=== PATIENT | male | born 1945 | race Caucasian/White ===

== ENCOUNTER → 2016-10-30 | Outpatient (CLI) | payer MEDICARE ==
[~2016-10-30] MED LIST: LISI10TA PO; MTF500T PO; OXYB10TA PO; blood pressure med; ditropan
--- NOTE | 2016-10-30 17:22 | Diagnostic Imaging Report ---
INDICATION: Cough. History of smoking. EXAMINATION: Two views of the chest were obtained. COMPARISON: 10/19/2013. FINDINGS: There is obstructive interstitial lung disease. The lungs are free of acute infiltrate. There are no masses. The heart is not enlarged. No hilar adenopathy. No pneumothorax or pleural effusion. IMPRESSION: Obstructive interstitial lung disease, otherwise negative chest. Dictated by: Dictated on workstation # [id number]
== END ==
LOC: RAD 16:29
PROVIDERS: ATTEND Nurse Practitioner Family
DX: J44.9 Chronic obstructive pulmonary disease, unspecified (principal); Z72.0 Tobacco use
CPT/HCPCS: 71020

== ENCOUNTER → 2018-09-15 | Outpatient (CLI) | payer MEDICARE ==
--- NOTE | 2018-09-15 17:55 | Diagnostic Imaging Report ---
INDICATION: Cough. TECHNIQUE: Two-view chest at 05:01 p.m. CORRELATION STUDY: 10/30/2016. FINDINGS: The heart size, mediastinal configuration and pulmonary vasculature are within normal limits. The lungs are clear with no consolidating infiltrate. There is no significant pleural effusion or pneumothorax. Visualized osseous structures are unremarkable. IMPRESSION: 1. Mildly hyperinflated lung milton. Minimal basilar atelectasis. No definitive infiltrate. Dictated by: Dictated on workstation # [id number]
== END ==
LOC: RAD 16:49
PROVIDERS: ATTEND Family Medicine
DX: R91.8 Other nonspecific abnormal finding of lung field (principal); R05 Cough
CPT/HCPCS: 71046

== ENCOUNTER 2018-10-10 09:37 | Outpatient (RCR) | payer MEDICARE ==
[2018-11-17] MEDS ORDERED: Patient May Use Own Meds, All PO (14:19)
== END 2019-01-08 | disposition home or self-care (01) ==
LOC: CARD 09:37
PROVIDERS: ATTEND Internal Medicine Interventional Cardiology
DX: R06.02 Shortness of breath (principal); E11.9 Type 2 diabetes mellitus without complications; E78.2 Mixed hyperlipidemia; I10 Essential (primary) hypertension; R00.1 Bradycardia, unspecified
CPT/HCPCS: 93225; 93226

== ENCOUNTER → 2018-10-13 | Outpatient (CLI) | payer MEDICARE | LOC: CARD 11:27 | PROVIDERS: ATTEND Internal Medicine Interventional Cardiology | DX: I34.0 Nonrheumatic mitral (valve) insufficiency (principal); I11.9 Hypertensive heart disease without heart failure; E78.2 Mixed hyperlipidemia; E11.9 Type 2 diabetes mellitus without complications | CPT/HCPCS: 93306 ==

== ENCOUNTER → 2018-11-03 | Outpatient (CLI) | payer MEDICARE ==
[~2018-11-03] VITALS: Ht 172.7 cm; Wt 79.8 kg
[~2018-11-03] MED LIST changes: +CATHETER FLUSH 10 ML SYR IV PRN; +REGADENOSON 0.4 MG/5 ML SYR (LEXISCAN) IV ONE
[2018-11-03 08:49] VITALS: BP 160/83
[2018-11-03 08:53] VITALS: BP 149/70
--- NOTE | 2018-11-04 12:53 | Cardiology Stress Test Report ---
Stress Test Report Type of NM Stress Test: Test Type: LEXISCAN 0.4MG/5ML Date of Procedure/Referring: Date of Procedure: Nov 03, 2018 PCP Boy Pitts MD Admitting Physician Altagracia Camargo MD Indications: hypertension, bradycardia Baseline Heart Rate: 66 Baseline Blood Pressure: Blood Pressure Systolic: 149 Blood Pressure Diastolic: 70 Baseline EKG: Baseline EKG: sinus rhythm Summary & Conclusion: Summary: The patient was brought to the stress lab after informed consent was taken. Stress test was performed according to the Lexiscan protocol. 0.4 mg of IV Lexiscan was given. Low-grade exercise was performed. Baseline EKG showed sinus rhythm at 66 BPM. Initial blood pressure was 160/83 mmHg. Maximum heart rate was 71 bpm and blood pressure 139/79 mmHg. Patient did not have any chest pain, arrhythmias. Possible ST depression in the inferior leads. 10.73 mCi of Myoview were given for rest imaging and 30.4 mCi of Myoview given for stress imaging. Transient ischemic dilatation score 1.16, EF 54 percent. Normal wall motion. Distal anterior/apical reversible defect. Moderate size. Conclusion: Pharmacological stress test was negative for ischemia. Normal LV function with no wall motion abnormalities. Likely ischemia in the distal anterior/apical territory. Coronary angiography is recommended. Boy PITTS MD Nov 04, 2018 12:53
== END ==
LOC: CARD 07:08
PROVIDERS: ATTEND Internal Medicine Interventional Cardiology
DX: I10 Essential (primary) hypertension (principal); E11.9 Type 2 diabetes mellitus without complications; E78.2 Mixed hyperlipidemia; R06.02 Shortness of breath; R00.1 Bradycardia, unspecified
CPT/HCPCS: 78452; 93017

== ENCOUNTER 2018-11-17 10:47 | Day surgery (SDC) | payer MEDICARE ==
[~2018-11-17] VITALS: Ht 172.7 cm; Wt 77.1 kg
[~2018-11-17 10:47] MED LIST changes: -CATHETER FLUSH 10 ML SYR IV PRN; -REGADENOSON 0.4 MG/5 ML SYR (LEXISCAN) IV ONE
[2018-11-17] MEDS ORDERED: NS IV 1000 ML 1,000 ML ONE ×2 (11:13→13:01)
[2018-11-17] MEDS ORDERED: LIDOCAINE 1% INJ 20 ML 20 ML VIAL ONE (11:13)
[2018-11-17 11:38] VITALS: BP 167/101
[2018-11-17] MEDS ORDERED: NS IV 1000 ML 1,000 ML IV SCH ×2 (11:39→14:00)
[2018-11-17] MEDS ORDERED: NS IV 1000 ML 1,000 ML IV ONE (11:45)
[2018-11-17 11:46] LABS: HEMOGLOBIN 14.3 G/DL (13.3-17.7); MEAN PLATELET VOLUME 10.4 FL (7.4-10.4); RED CELL DISTRIBUTION WIDTH 15.1 % (10.0-14.5); WHITE BLOOD COUNT 8.1 10^3/uL (4.3-11.0)
[2018-11-17 11:55] LABS: PROTHROMBIN TIME PATIENT 13.3 SEC (12.2-14.7)
[2018-11-17 12:00] LABS: ALBUMIN 4.4 GM/DL (3.2-4.5); BILIRUBIN,TOTAL 0.9 MG/DL (0.1-1.0); CALCIUM 9.5 MG/DL (8.5-10.1); CREATININE SERUM 1.63 MG/DL (0.60-1.30); POTASSIUM 4.1 MMOL/L (3.6-5.0); TOTAL PROTEIN 7.7 GM/DL (6.4-8.2)
[2018-11-17] MEDS ORDERED: HEParin (CATH LAB) 2,000 ML IV ONE (13:01)
[2018-11-17] MEDS ORDERED: fentaNYL INJECTION 100 MCG/2 ML AMP ONE (13:04)
[2018-11-17] MEDS ORDERED: MIDAZOLAM 5 MG/5 ML (VERSED) VIAL ONE (13:04)
--- NOTE | 2018-11-17 13:23 | Cardiac Procedure Note-CS/ASA ---
Pre-Procedure Note Pre-Op Procedure Note H&P Reviewed The H&P was reviewed, patient examined and no changes noted. Date H&P Reviewed: Nov 17, 2018 Time H&P Reviewed: 13:00 Conscious Sedation Pre-Proced Time 13:00 ASA Score 3 For ASA 3 and 4: Consider anesthesia and medical clearance. Also, for patients with a history of failed moderate sedation consider anesthesia. Airway Lungs Heart ASA score ASA 1: a normal healthy patient ASA 2: a patient with a mild systemic disease (mid diabetes, controlled hypertension, obesity ASA 3: a patient with a severe systemic disease that limits activity (angina, COPD, prior Myocardial infarction) ASA 4: a patient with an incapacitating disease that is a constant threat to life (CHF, renal failure) ASA 5: a moribund patient not expected to survive 24 hrs. (ruptured aneurysm) ASA 6: a declared brain- patient whose organs are being harvested. For emergent operations, add the letter E after the classification Mallampati Classification Grade 1 Sedation Plan Analgesia, Amnesia, Plan communicated to team members, Discussed options with patient/fam, Discussed risks with patient/fam The patient is an appropriate candidate to undergo the planned procedure, sedation, and anesthesia. The patient immediately re-assessed prior to indication. Boy SEVERINO MD Nov 17, 2018 13:23
--- NOTE | 2018-11-17 13:26 | History & Physicial-Cardiolgy ---
HPI-Cardiology Cardiology Consultation: Date of Consultation 11/17/18 Date of Admission Attending Physician Boy Pitts MD Admitting Physician Altagracia Camargo MD Consulting Physician Boy PITTS MD HPI: Time Seen by a Provider: 13:24 Chief Complaint: shortness of breath with significant risk factors for CAD including diabetes, hypertension, hyperlipidemia. Previous history of smoking. shortness of breath with significant coronary artery disease risk factors. Review of Systems-Cardiology Review of Systems Constitutional: As described under HPI; No As described under HPI, No no symptoms reported, No chills, No fever, No lightheadedness Eyes: No As described under HPI, No no symptoms reported, No blindness, No blurred vision, No contact lenses, No drainage, No decreased acuity, No foreign body sensation, No pain, No vision change Ears/Nose/Throat: No As described under HPI, No no symptoms reported, No chronic hearing loss, No ear discharge, No ear pain, No nasal drainage, No ulcerations Respiratory: No no symptoms reported; As described under HPI; No As described under HPI, No cough, No orthopnea; shortness of breath; No SOB with excertion Cardiovascular: No no symptoms reported; As described under HPI; No As described under HPI, No chest pain, No edema, No irregular heart rate, No lightheadedness, No palpitations Gastrointestinal: No no symptoms reported, No As described under HPI, No abdomen distended, No abdominal pain, No blood streaked bowels, No constipation, No diarrhea, No nausea, No vomiting, No stool coloration changes Genitourinary: No As described under HPI, No burning, No dysuria, No discharge, No frequency, No flank pain, No hematuria, No urgency Skin: No rash, No skin related problems, No ulcerations Psychiatric/Neurological: No anxiety, No depression, No seizure, No focal weakness, No syncope Hematologic: No bleeding abnormalities XUH-Ownpan-Prqktn Hx Patient Social History Alcohol Use: Denies Use Recreational Drug Use: No Smoking Status: Former Smoker 2nd Hand Smoke Exposure: No Recent Foreign Travel: No Recent Infectious Disease Expo: No Immunizations Up To Date Date of Pneumonia Vaccine: Nov 17, 2017 Past Medical History PMH As described under Assessment. Allergies and Home Medications Allergies Coded Allergies: Cephalexin Monohydrate (Unverified Allergy, Unknown, 01/18/12) Home Medications Lisinopril 10 Mg Tablet, 10 MG PO DAILY, (Reported) Metformin Hcl 500 Mg Tablet, 0.5 EACH PO BID WITH MEALS, (Reported) Oxybutynin Chloride 10 Mg Tablet, 2 EACH PO DAILY, (Reported) Patient Home Medication List Home Medication List Reviewed: Yes Physical Exam-Cardiology Physical Exam Vital Signs/I&O 11/17/18 11:38 Pulse 63 Resp 17 B/P (MAP) 167/101 (123) Pulse Ox 99 O2 Delivery Room Air Capillary Refill : Constitutional: appears stated age, AAO x 3; No apparent distress; well- developed, well-nourished HEENT: PERRL; No normal ENT inspection, No TMs normal, No pharynx normal, No scleral icterus (R), No scleral icterus (L), No pale conjunctivae (R), No pale conjunctivae (L), No photophobia, No TM abnormal (R), No TM abnormal (L), No pharyngeal erythema, No tonsillar exudate, No other, No discharge, No EOMI; hearing is well preserved; No hard of hearing; oral hygience is good; No ulceration, No xanthelasmas are seen Neck: No non-tender, No full range of motion, No supple, No normal inspection, No carotid bruit, No limited range of motion, No lymphadenopathy (R), No lymphadenopathy (L), No tender lateral, No tender midline, No thyromegaly, No other; carotid pulses are 2 + bilaterally; No with good upstrokes Respiratory: No accessory muscle use, No respiratory distress, No chest tender, No chest expansion is symmetric; chest is bilaterally symmetric; No lungs clear to percussion; lungs clear to auscultation; No crackles, No rhonchi, No rales, No stridor, No wheezing, No pleural rub, No other Cardiovascular: regular rate-rhythm; No irregularly irregular, No extra beats, No parasternal heave is noted, No JVD, No edema; bradycardia; No tachycardia, No point of maximal impulse, No cardiac thrills are palpable; S1 and S2; No gallop/S3, No gallop/S4, No diastolic murmur, No systolic murmur, No friction rub, No click, No other Gastrointestinal: No tender, No soft, No round, No distended, No pulsatile mass, No organomegaly, No guarding, No rebound, No tenderness, No hernia, No mass, No audible bowel sounds, No abnormal bowel sounds, No abdominal bruits, No spleenomegaly, No other Rectal: deferred Extremities: No normal range of motion, No non-tender, No normal inspection, No pedal edema, No calf tenderness, No normal capillary refill, No pelvis stable, No calf tenderness, No inflammation, No pedal edema, No slow capillary refill, No swelling, No other, No abrasion, No clubbing, No cyanosis, No ecchymosis, No laceration, No no lower extremity edema bilateral, No significant edema, No tenderness, No wound Neurologic/Psychiatric: no motor/sensory deficits, alert, normal mood/affect, oriented x 3, power is 5/5 both on sides Skin: No normal color, No warm/dry, No cyanosis, No cool, No diaphoresis, No damp, No ecchymosis, No jaundice, No mottled, No pallor, No rash, No tattoos/piercings, No ulcerations, No rash on exposed areas, No ulcerations on exposed areas, No other Data Review Labs Laboratory Tests 11/17/18 11:30: White Blood Count 8.1, Red Blood Count 5.04, Hemoglobin 14.3, Hematocrit 43, Mean Corpuscular Volume 85, Mean Corpuscular Hemoglobin 28, Mean Corpuscular Hemoglobin Concent 33, Red Cell Distribution Width 15.1H, Platelet Count 163, Mean Platelet Volume 10.4, Prothrombin Time 13.3, INR Comment 1.0, Activated Partial Thromboplast Time 35, Sodium Level 143, Potassium Level 4.1, Chloride Level 109H, Carbon Dioxide Level 24, Anion Gap 10, Blood Urea Nitrogen 37H, Creatinine 1.63H, Estimat Glomerular Filtration Rate 41, BUN/Creatinine Ratio 23, Glucose Level 113H, Calcium Level 9.5, Corrected Calcium 9.2, Total Bilirubin 0.9, Aspartate Amino Transf (AST/SGOT) 19, Alanine Aminotransferase (ALT/SGPT) 26, Alkaline Phosphatase 105, Total Protein 7.7, Albumin 4.4 A/P-Cardiology Assessment/Admission Diagnosis shortness of breath, asymptomatic bradycardia, diabetes, hypertension, hyperlipidemia, chronic kidney disease. Admission Status: Observation Plan coronary angiography is recommended since the patient had an abnormal nuclear stress test with apical ischemia. Chronic kidney disease. Boy PITTS MD Nov 17, 2018 13:26
[2018-11-17] MEDS ORDERED: PATIENT MAY USE OWN MEDS, ALL PO SCH (14:00)
--- NOTE | 2018-11-17 14:07 | Coronary Angiography Report ---
Coronary Angiography Report DATE OF PROCEDURE: 11/17/18 INDICATION: shortness of breath, diabetes, abnormal nuclear stress test. PREOPERATIVE DIAGNOSIS: shortness of breath, diabetes, abnormal nuclear stress test. POSTOPERATIVE DIAGNOSIS: severe triple-vessel disease with diabetes. HISTORY: this is a 73-year-old gentleman who presented to my office with complains of shortness of breath. He has history of diabetes, hypertension, untreated hyperlipidemia and chronic kidney disease. Nuclear stress test was done which showed moderate anterior apical ischemia. Therefore, the patient was scheduled for coronary angiography. PROCEDURES PERFORMED: 1.Coronary angiography. 2.Left heart catheterization. COMPLICATIONS: None. SPECIMENS: None. ESTIMATED BLOOD LOSS: 10 mL ANESTHESIA: Conscious sedation ANTICOAGULATION: none. CONTRAST: 22 mL. FLUOROSCOPY: 2.3 minutes. FLOUROSCOPY DOSE: 311 mgy. PROCEDURE DETAILS: The patient is a 73 male and was brought to the bundle tier and labeler after informed consent was taken. All the risks and complications were explained in detail; this included the risk of bleeding, vascular damage, stroke, [place] and even . The patient was draped and prepped in the usual sterile fashion. Jeffrey's test was abnormal therefore Access was gained in the right femoral artery with a 5 [place] sheath. Coronary angiography and left heart catheteri zation was performed with a JR4 and JL4 catheter. FINDINGS: 1.Left main: patent. 2.LAD: proximal occlusion with collaterals from the RCA. 3.Left circumflex artery: proximal occlusion with collaterals from the RCA. 4.RCA: severe proximal stenosis. Large artery. Supplies collaterals to the LAD and left circumflex artery. 5.Left heart catheterization: LV pressure 112/4 mmHg. LVEDP 7 mmHg. Aortic pressure 114/60 mmHg. Normal LV function with distal anterior, apical hypokinesis. No gradient across the aortic valve. CONCLUSIONS: this is a 73-year-old gentleman in history of diabetes, untreated hyperlipidemia, hypertension, chronic kidney disease who presented to the office with shortness of breath. Nuclear stress test showed moderate sized anterior apical ischemia. Coronary angiography reveals occluded proximal LAD and left circumflex artery and severe stenosis of the proximal RCA. The RCA is a large artery and supplies collaterals to the LAD and left circumflex artery. I believe that the best revascularization strategy is cardiac surgery. I will also recommend a in-hospital transfer. I will make the arrangements. Abdirashid Pitts MD, FACP, FACC, [facility] Interventional Cardiology Boy PITTS MD Nov 17, 2018 14:07
[2018-11-17] MEDS ORDERED: Patient May Use Own Meds, All PO (14:19)
--- NOTE | 2018-11-17 14:19 | Cardiology Discharge Summary ---
Diagnosis/Chief Complaint Date of Admission 11/17/2018 Date of Discharge 11/17/2018 Admission Diagnosis shortness of breath, diabetes, abnormal nuclear stress test Final/Discharge Diagnosis severe triple-vessel CAD Chief Complaint/HPI Chief Complaint/HPI shortness of breath with significant coronary artery disease risk factors including diabetes, untreated hyperlipidemia, hypertension, chronic kidney disease. Nuclear stress test showed moderate sized anterior apical ischemia. Discharge Summary Procedures coronary angiography showed occluded proximal LAD and proximal left circumflex artery filled via collaterals from the RCA. RCA is a large artery with severe proximal stenosis. LVEDP 7. LVEF normal. Distal anterior/apical hypokinesis. Discharge Physical Examination unremarkable Hospital Course Was the Problem List Reviewed?: Yes unremarkable Pending Labs Laboratory Tests 11/17/18 11:30: White Blood Count 8.1, Red Blood Count 5.04, Hemoglobin 14.3, Hematocrit 43, Mean Corpuscular Volume 85, Mean Corpuscular Hemoglobin 28, Mean Corpuscular Hemoglobin Concent 33, Red Cell Distribution Width 15.1, Platelet Count 163, Mean Platelet Volume 10.4, Prothrombin Time 13.3, INR Comment 1.0, Activated Partial Thromboplast Time 35, Sodium Level 143, Potassium Level 4.1, Chloride Level 109, Carbon Dioxide Level 24, Anion Gap 10, Blood Urea Nitrogen 37, Creatinine 1.63, Estimat Glomerular Filtration Rate 41, BUN/Creatinine Ratio 23, Glucose Level 113, Calcium Level 9.5, Corrected Calcium 9.2, Total Bilirubin 0.9, Aspartate Amino Transf (AST/SGOT) 19, Alanine Aminotransferase (ALT/SGPT) 26, Alkaline Phosphatase 105, Total Protein 7.7, Albumin 4.4 Discussion & Recommendations Discussion discussed at length with the patient and family. Cardiac surgery is recommended. I have spoken to Dr. Mahesh Hayes at [facility] and will make arrangement of transfer to [facility] this afternoon. Follow up appt.: Dr. Pitts after surgery. Dicharge Diet: Cardiac Diet Activity as Tolerated: Yes Home Medications Reviewed patient Home Medication Reconciliation performed by pharmacy medication reconciliations overhead door technician and/or nursing. Patients Allergies have been reviewed. Discharge Home Medications: Reviewed and agree with Discharge Medication list on patient's Discharge Instruction sheet Condition at discharge stable Instructions to patient/family discussed at length with the patient and family. Boy PITTS MD Nov 17, 2018 14:19
--- NOTE | 2018-11-17 14:20 | Discharge Inst-Post CATH ---
Discharge Inst-CATH/EP Problems Reviewed?: Yes Post Cardiac Cath/EP D/C Inst Follow Up/Plan discussed at length with the patient and family. <b>CARDIAC CATH/EP PROCEDURE DISCHARGE INSTRUCTIONS</b> ACTIVITY * Go Home directly and rest. * Limit activity of the leg (or wrist if it was used) for 7 days including aerobics, swimming, jogging, bicycling, etc. * Restrict stair-climbing for 7 days if possible, if not, climb up with your non-cath leg, then bring together on the same step. * Avoid lifting, pushing, pulling or excessive movement of the affected extremity for 7 days. * Customary sexual activity may be resumed after 2 days-use caution not to use a position that strains or causes pain to the affected extremity. * No driving for 24 hours. * NO SMOKING. * Avoid straining for bowel movements for 7 days. * Gentle walking on level ground is allowed. * Returning to work will depend on the type of procedure and the results. Your doctor will discuss this with you. CALL YOUR DOCTOR FOR ANY OF THE FOLLOWING: *If bleeding from the puncture site occurs- Apply gentle pressure to site with clean cloth and call your doctor or EMS. * If a knot or lump forms under the skin, increases in size, or causes pain. * If bruising appears to be worsening or moving further down your leg instead of disappearing. * Temperature above 101 F. CARE OF YOUR GROIN INCISION; * Bruising or purple discoloration of the skin near the puncture site is common. * You may shower only, no bathtub bathing for 5 days. Be careful to avoid slipping as your leg may feel stiff. * If a closure device was used on your femoral artery, please see the attached guide regarding care of the device and your leg. * Leave dressing on FOR 24 hours. CARE OF YOUR WRIST INCISION; * Bruising or purple discoloration of the skin near the puncture site is common. * You may shower. * DO NOT submerge wrist. * Leave dressing on FOR 24 hours. Boy SEVERINO MD Nov 17, 2018 14:20
[2018-11-17 14:30] VITALS: BP 130/75
[2018-11-17 15:15] VITALS: BP 131/61
[2018-11-17 15:30] VITALS: BP 122/73
[2018-11-17 15:45] VITALS: BP 130/64
[2018-11-17 16:00] VITALS: BP 129/69
--- NOTE | 2018-11-17 16:17 | NUR ---
REPORT GIVEN TO JOON AT [facility] AT 1510. PT LEFT FLOOR VIA EMS AT 1615.
== END 2018-11-17 16:18 | disposition short-term general hospital (02) ==
LOC: CATH 10:47 → ICU 14:28 → CATH 16:18
PROVIDERS: ATTEND Internal Medicine Interventional Cardiology
DX: I25.10 Atherosclerotic heart disease of native coronary artery without angina pectoris (principal); I99.8 Other disorder of circulatory system; I22.9 Subsequent ST elevation (STEMI) myocardial infarction of unspecified site; E11.22 Type 2 diabetes mellitus with diabetic chronic kidney disease; E11.59 Type 2 diabetes mellitus with other circulatory complications; E78.5 Hyperlipidemia, unspecified; N18.9 Chronic kidney disease, unspecified; Z87.891 Personal history of nicotine dependence; Z88.1 Allergy status to other antibiotic agents; Z79.4 Long term (current) use of insulin
CPT/HCPCS: 36415; 80053; 85027; 85610; 85730; 87081; 93458

== ENCOUNTER → 2018-11-30 | Outpatient (CLI) | payer MEDICARE ==
[~2018-11-30] MED LIST changes: +Patient May Use Own Meds, All PO
--- NOTE | 2018-11-30 18:29 | Diagnostic Imaging Report ---
EXAMINATION: Chest (PA and lateral). CLINICAL INDICATION: 73-year-old male, cough and chest pain. History of recent bypass surgery. COMPARISON: September 15, 2018. FINDINGS: There are median sternotomy wires. Stable overall appearance of the cardiomediastinal silhouette. There is no identified pneumothorax. There is mild blunting of the left lateral and posterior costophrenic angles which may relate to a trace small effusion. There are linear opacities in the left lower lobe which may reflect atelectasis and/or infiltrate. IMPRESSION: There is a small left pleural effusion with linear opacities in the left lower lobe likely relating to atelectasis and/or infiltrate. Dictated by: Dictated on workstation # [id number]
== END ==
LOC: RAD 14:00
PROVIDERS: ATTEND Nurse Practitioner Family
DX: J90 Pleural effusion, not elsewhere classified (principal); Z95.1 Presence of aortocoronary bypass graft
CPT/HCPCS: 71046

== ENCOUNTER → 2018-12-09 | Outpatient (CLI) | payer MEDICARE ==
--- NOTE | 2018-12-09 17:51 | Diagnostic Imaging Report ---
INDICATION: Pneumonia. PA and lateral chest compared with a prior study from November 30, 2018 and to prior chest CT from November 05, 2011. FINDINGS: Patient is status post previous sternotomy. There are surgical clips near the left pulmonary hilum. There is a vague density present adjacent to the left hilum, which is new compared to September 15, 2018. There are surgical clips at that level, also appear new. This is likely on a postsurgical basis. Right lung is clear. There is no significant effusion. There is some chronic blunting at the left costophrenic angle. There is no pneumothorax. Pulmonary vascularity appears appropriate. IMPRESSION: 1. Surgical changes at the left hilum with vague left perihilar densities of indeterminate significance. This is likely postsurgical in nature. Followup with CT chest should be considered, however, if this remains a persistent finding on subsequent followup. Right lung clear. No acute cardiopulmonary process evident. Dictated by: Dictated on workstation # [id number]
== END ==
LOC: RAD 17:01
PROVIDERS: ATTEND Nurse Practitioner Family
DX: J18.9 Pneumonia, unspecified organism (principal); J98.4 Other disorders of lung; Z98.890 Other specified postprocedural states
CPT/HCPCS: 71046

== ENCOUNTER → 2020-07-26 | Outpatient (CLI) | payer MEDICARE ==
--- NOTE | 2020-07-26 15:04 | Diagnostic Imaging Report ---
PROCEDURE: US renal bilateral. TECHNIQUE: Multiple real-time grayscale images were obtained over the kidneys in various projections, bilaterally. INDICATION: Renal failure. FINDINGS: The right kidney measures 9.9 x 4.3 x 5.3 cm. Left kidney measures 11.0 x 4.9 x 5.8 cm. There is a 2.5 cm cyst on the infralateral margin of the right kidney. There is no solid mass, calculus or hydronephrosis seen in either kidney. Urinary bladder appears normal. IMPRESSION: Unremarkable renal ultrasound. Dictated by: Dictated on workstation # [id number]
== END ==
LOC: RAD 12:30
PROVIDERS: ATTEND Nurse Practitioner
DX: N18.31 Chronic kidney disease, stage 3a (principal)
CPT/HCPCS: 76770

== ENCOUNTER → 2021-02-20 | Outpatient (CLI) | payer MEDICARE | LOC: RAD 17:04 | PROVIDERS: ATTEND Physician Assistant | DX: M54.2 Cervicalgia (principal) ==

== ENCOUNTER → 2021-07-25 | Outpatient (CLI) | payer MEDICARE ==
[~2021-07-25] MED LIST changes: +DARBEPOETIN 100 MCG/ML (ARANESP) 1 ML HOSPITAL SC ONE; +DARBEPOETIN 40 MCG/ML (ARANESP) HOSPITAL SC ONE; +[UNRECOGNIZED DRUG - REMARK] SQ ONE
[2021-07-25 10:05] VITALS: BP 139/73
[2021-07-25 10:30] LABS: HEMOGLOBIN 9.6 g/dL (13.3-17.7)
[2021-07-25 10:51] LABS: CALCIUM 9.4 MG/DL (8.5-10.1); CREATININE SERUM 6.38 MG/DL (0.60-1.30); PHOSPHORUS 6.3 MG/DL (2.3-4.7); POTASSIUM 4.7 MMOL/L (3.6-5.0)
== END ==
LOC: SDC 09:58
PROVIDERS: ATTEND Nurse Practitioner
DX: D63.1 Anemia in chronic kidney disease (principal)
CPT/HCPCS: 36415; 80069; 82728; 83540; 83550; 85014; 85018; 96372

== ENCOUNTER → 2021-08-04 | Outpatient (CLI) | payer MEDICARE ==
[~2021-08-04] MED LIST changes: -DARBEPOETIN 100 MCG/ML (ARANESP) 1 ML HOSPITAL SC ONE; -DARBEPOETIN 40 MCG/ML (ARANESP) HOSPITAL SC ONE; -[UNRECOGNIZED DRUG - REMARK] SQ ONE
--- NOTE | 2021-08-04 17:35 | Diagnostic Imaging Report ---
INDICATION: Cough PA and lateral views of the chest are obtained with comparison made to study of 12/09/2018. Overall heart size is within normal limits. There has been further increase in bilateral perihilar markings which are predominantly interstitial in nature. Interstitial markings are also seen in the lung bases peripherally. There is no evidence of lobar consolidation, pneumothorax or definite pleural fluid. IMPRESSION: Findings suggest developing interstitial pulmonary edema. This could be on the basis of cardiac decompensation and clinical correlation would be of use. Dictated by: Dictated on workstation # [id number]
== END ==
LOC: RAD 14:34
PROVIDERS: ATTEND Nurse Practitioner Family
DX: R05.9 Cough, unspecified (principal)
CPT/HCPCS: 71046